=== PATIENT | female | born 1990 | race Caucasian/White ===

== ENCOUNTER 2016-08-02 13:17 | Outpatient (CLI) | payer MEDICAID ==
--- NOTE | 2016-08-03 22:03 | XRAY Report ---
EXAM: RIGHT FOURTH DIGIT RADIOGRAPHY EXAM DATE: 08/02/2016 01:29 PM. CLINICAL HISTORY: PAIN IN RIGHT FINGER. COMPARISON: None. TECHNIQUE: 3 views. FINDINGS: Bones: Comminuted fracture involving the terminal tuft of the fourth distal phalanx without significa nt displacement. No additional fractures. Joints: Normal. No subluxations. Soft Tissues: Unremarkable. IMPRESSION: 1. Comminuted nondisplaced fracture involving the terminal tuft of the right fourth distal phalanx. [facility] Referring Provider Line: [phone] SITE ID: [id number]
== END 2016-08-02 13:18 | disposition home or self-care (01) ==
LOC: DI.S 13:17
PROVIDERS: ATTEND Nurse Practitioner Family
DX: S62.634A Displaced fracture of distal phalanx of right ring finger, initial encounter for closed fracture (principal)
CPT/HCPCS: 73140

== ENCOUNTER 2017-03-14 13:12 | Outpatient (CLI) | payer MEDICAID ==
--- NOTE | 2017-03-15 11:25 | XRAY Report ---
DATE OF SERVICE: 03/14/2017 RIGHT KNEE: 03/14/2017 COMPARISON: None. INDICATION: Right knee pain. TECHNIQUE: Four views of the knee. FINDINGS: Normal alignment. No evidence of acute fracture. No degenerative changes. No effusion. Soft tissues grossly unremarkable. IMPRESSION: NEGATIVE KNEE. TD: 03/15/2017 11:11 [facility]
== END 2017-03-14 13:13 | disposition home or self-care (01) ==
LOC: DI 13:12
PROVIDERS: ATTEND Nurse Practitioner Family
DX: M25.561 Pain in right knee (principal)

== ENCOUNTER 2017-04-01 14:52 | Outpatient (CLI) | payer MEDICAID ==
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
== END 2017-04-01 14:53 | disposition home or self-care (01) ==
LOC: DI 14:52
PROVIDERS: ATTEND Orthopaedic Surgery
DX: S83.91XA Sprain of unspecified site of right knee, initial encounter (principal); M25.461 Effusion, right knee

== ENCOUNTER 2018-05-14 11:55 | Outpatient (CLI) | payer MEDICAID ==
[2018-05-14 12:14] LABS: BASOPHILS % (AUTO) 0.6 %; EOSINOPHILS # (AUTO) 0.7 10^3/uL (0.0-0.7); EOSINOPHILS % (AUTO) 8.5 %; HGB - HEMOGLOBIN 13.2 g/dL (12.0-16.0); LYMPHOCYTES # (AUTO) 1.6 10^3/uL (1.5-3.5); LYMPHOCYTES % (AUTO) 21.4 %; MEAN CORPUSCULAR HEMOGLOBIN 33.7 pg (27.0-31.0); MEAN PLATELET VOLUME 6.9 fL (7.9-10.8); MONOCYTES # (AUTO) 0.5 10^3/uL (0.0-1.0); MONOCYTES % (AUTO) 7.2 %; NEUTROPHILS # (AUTO) 4.8 10^3/uL (1.5-6.6); NEUTROPHILS % (AUTO) 62.3 %; PLT - PLATELET COUNT 226 10^3/uL (130-450); RED BLOOD COUNT 3.92 10^6/uL (4.20-5.40); RED CELL DISTRIBUTION WIDTH 14.2 % (12.0-15.0); WHITE BLOOD COUNT 7.7 x10^3/uL (4.8-10.8)
[2018-05-14 12:31] LABS: ALBUMIN 4.1 g/dL (3.2-5.5); ALBUMIN/GLOBULIN RATIO 1.6 (1.0-2.2); BILIRUBIN,TOTAL 0.9 mg/dL (0.2-1.0); CALCIUM 9.7 mg/dL (8.5-10.3); CREATININE 0.8 mg/dL (0.4-1.0); TOTAL PROTEIN 6.7 g/dL (6.7-8.2)
== END 2018-05-14 11:56 | disposition home or self-care (01) ==
LOC: LAB 11:55
PROVIDERS: ATTEND Nurse Practitioner
DX: R10.31 Right lower quadrant pain (principal)
CPT/HCPCS: 36415; 80053; 85025

== ENCOUNTER 2018-05-14 12:21 | Emergency (ER) | payer MEDICAID ==
[2018-05-14] MEDS ORDERED: MORPHINE 2 MG/ML CARPUJECT IVP STA ×2 (14:13→16:34)
--- NOTE | 2018-05-14 14:16 | ED Physician Documentation ---
PD HPI ABD PAIN - Stated complaint Stated Complaint: RIGHT ABDOMINAL PAIN - Chief complaint Chief Complaint: Abd Pain - History obtained from History obtained from: Patient - History of Present Illness Timing - onset: Other (27-year-old woman with 2 days of initially intermittent and now increasing and more constant right mid abdominal pain that is nonradiating. It is worse with motion. There is no associated nausea, decreased appetite or bowel issue. She doubts . She was seen in the office and had blood work done which was negative and referred here for an ultrasound.) Review of Systems Ten Systems: 10 systems reviewed and negative Constitutional: denies: Fever, Chills Cardiac: denies: Chest pain / pressure, Palpitations Respiratory: denies: Dyspnea, Cough GI: reports: Abdominal Pain. denies: Nausea, Vomiting, Constipation, Diarrhea, Hematemesis, Bloody / black stool PD PAST MEDICAL HISTORY - Past Medical History Cardiovascular: None Respiratory: None Endocrine/Autoimmune: None GI: None : None HEENT: None Psych: Depression, Anxiety, Other Musculoskeletal: None Derm: None - Past Surgical History Past Surgical History: No HEENT: Cataracts - Present Medications Home Medications: Ambulatory Orders Medication Instructions Recorded Confirmed Hydrocodone/Acetaminophen 1 - 2 each PO Q6H PRN #10 tablet 05/14/18 [Hydrocodon-Acetaminophen 5-325] PARoxetine HCl [Paroxetine HCl] 20 mg PO DAILY 05/14/18 05/14/18 Propranolol [Inderal] 10 mg PO DAILY 05/14/18 05/14/18 - Allergies Allergies/Adverse Reactions: Allergies Allergy/AdvReac Type Severity Reaction Status Date / Time No Known Drug Allergies Allergy Verified 05/14/18 12:30 - Social History Does the pt smoke?: No Smoking Status: Never smoker Does the pt drink ETOH?: Yes Does the pt have substance abuse?: Yes - Immunizations Immunizations are current?: Yes - POLST Patient has POLST: No PD ED PE NORMAL - Vitals Vital signs reviewed: Yes - General General: Alert and oriented X 3, No acute distress - HEENT HEENT: PERRL, EOMI - Neck Neck: Supple, no meningeal sign, No bony TTP - Cardiac Cardiac: RRR, No murmur - Respiratory Respiratory: No respiratory distress, Clear bilaterally - Abdomen Abdomen: Normal bowel sounds, Soft, No organomegaly, Other (Tender right mid abdomen, below Fountain's point and above McBurney's point.) - Back Back: No CVA TTP, No spinal TTP - Derm Derm: Normal color, Warm and dry - Extremities Extremities: No edema, No calf tenderness / cord - Neuro Neuro: Alert and oriented X 3, Normal speech - Psych Psych: Normal mood, Normal affect Results - Vitals Vitals: Vital Signs - 24 hr 05/14/18 05/14/18 05/14/18 12:27 14:34 16:28 Temperature 36.5 C 37.3 C Heart Rate 74 64 65 Respiratory 14 18 14 Rate Blood Pressure 121/74 130/75 119/88 H O2 Saturation 96 99 99 Oxygen O2 Source Room air - Labs Labs: Laboratory Tests 05/14/18 14:31 Urine Color YELLOW Urine Clarity HAZY Urine pH 6.0 Ur Specific [place] >=1.030 H Urine Protein NEGATIVE Urine Glucose (UA) NEGATIVE Urine Ketones NEGATIVE Urine Occult Blood SMALL H Urine Nitrite NEGATIVE Urine Bilirubin NEGATIVE Urine Urobilinogen 0.2 (NORMAL) Ur Leukocyte Esterase SMALL H Urine RBC 0-5 Urine WBC 4-5 Ur Squamous Epith Cells MANY Squamous H Urine Bacteria Few Ur Microscopic Review INDICATED Urine Culture Comments NOT INDICATED Urine HCG, Qual NEGATIVE - Rads (name of study) RLQ Sono Radiology: EMP read contemporaneously ct a/p Radiology: EMP read contemporaneously (NORMAL) PD MEDICAL DECISION MAKING - ED course ED course: 27-year-old woman with right mid abdominal pain, would be atypical but not impossible for appendicitis or biliary issue. Started with ultrasound. This was negative and followed with CAT scan also negative. Noting that outpatient labs were done earlier in the day and unremarkable. Close watchful waiting was advised. Departure - Departure Disposition: 01 Home, Self Care Clinical Impression: Abdominal pain Qualifiers: Abdominal location: right lower quadrant Qualified Code(s): R10.31 - Right lower quadrant pain Condition: Good Record reviewed to determine appropriate education?: Yes Instructions: ED Abdominal Pain Appendx Poss Prescriptions: Hydrocodone/Acetaminophen [Hydrocodon-Acetaminophen 5-325] 1 - 2 each PO Q6H PRN #10 tablet PRN Reason: pain Comments: RETURN IN 24 HOURS IF NOT BETTER, ANYTIME IF WORSE OR FOR NEW SYMPTOMS.
[2018-05-14 14:44] LABS: BILIRUBIN,URINE NEGATIVE (NEGATIVE); GLUCOSE, URINE (UA) NEGATIVE (NEGATIVE); KETONES,URINE (UA) NEGATIVE (NEGATIVE); LEUKOCYTE ESTERASE, URINE SMALL (NEGATIVE); NITRITE,URINE NEGATIVE (NEGATIVE); OCCULT BLOOD,URINE SMALL (NEGATIVE); PROTEIN,URINE NEGATIVE (NEGATIVE); UROBILINOGEN,URINE 0.2 (NORMAL) E.U./dL (NORMAL)
[2018-05-14 14:47] LABS: CLARITY,URINE HAZY (CLEAR); HCG UR QUAL NEGATIVE
[2018-05-14 14:53] LABS: BACTERIA,URINE Few /HPF (None Seen); RBC,URINE 0-5 /HPF (0-5); SQUAMOUS EPITHELIAL CELL,UR MANY Squamous (<= Few)
--- NOTE | 2018-05-14 16:27 | Ultrasound Report ---
Reason: RLQ pain eval appy Procedure Date: 05/14/2018 Accession Number: [id number] / [id number] Procedure: US - Abdomen Limited CPT Code: FULL RESULT: EXAM: ABDOMEN ULTRASOUND LIMITED. EXAM DATE: 05/14/2018 03:35 PM. CLINICAL HISTORY: Right lower quadrant pain evaluate for appendicitis. COMPARISON: None. TECHNIQUE: Real-time scanning was performed with static images obtained. FINDINGS: Focused right lower quadrant ultrasound was performed. The ileocecal valve is identified in the right lower quadrant. Normal peristalsis is seen in the right lower quadrant. There is no significant free fluid in the lymphadenopathy is seen. A blind-ending tubular structure with a caliber of 3 mm is identified arising from the cecum, compatible with normal-appearing appendix. This structure is identifiable only under compression as without compression of the structure was masked by bowel gas. IMPRESSION: No appendicitis. [facility]
[2018-05-14] MEDS ORDERED: IOVERSOL 320 100 ML VIAL IVP ONE ×2 (16:45→17:22)
--- NOTE | 2018-05-14 17:59 | CT Report ---
Reason: IV only, R abd pain Procedure Date: 05/14/2018 Accession Number: [id number] / [id number] Procedure: CT - Abdomen/Pelvis W CPT Code: FULL RESULT: EXAM: CT ABDOMEN AND PELVIS EXAM DATE: 05/14/2018 05:19 PM. CLINICAL HISTORY: IV only, R abd pain. COMPARISONS: CT ABD AND PELVIS WITH CONTRAST 03/31/2012 9:37 PM. TECHNIQUE: Routine helical CT imaging was performed through the abdomen and pelvis. IV contrast: 100 cc Optiray 320. Enteric contrast: No. Reconstructions: Coronal and sagittal. In accordance with CT protocol optimization, one or more of the following dose reduction techniques were utilized for this exam: automated exposure control, adjustment of mA and/or KV based on patient size, or use of iterative reconstructive technique. FINDINGS: ABDOMEN: Lung Bases: Incompletely included lower lungs are grossly clear. Heart size is within normal limits. No basilar effusions. Liver: 6 mm hyperdense focus in the right hepatic lobe (3/35) likely reflects a small hemangioma. Spleen: Unremarkable. Pancreas: Unremarkable. Gallbladder/Bile Ducts: Gallbladder is unremarkable. Biliary tree is normal caliber. Adrenal Glands: Unremarkable. Kidneys: No mass, calculi, or hydronephrosis. Peritoneum/Mesentery/Bowel: No free fluid, free air, or collection. No intestinal obstruction or inflammation. The appendix is within normal limits. Lymph nodes: No mesenteric, periportal, or retroperitoneal lymphadenopathy. Vasculature: Abdominal aorta is nonaneurysmal. Portal vein is patent. Hepatic veins are patent. PELVIS: The bladder is unremarkable for the degree of distention. Uterus and ovaries are present No pelvic lymphadenopathy. Bones: No suspicious osseous lesions. IMPRESSION: No acute abnormalities. Normal appendix. [facility]
[2018-05-14 18:21] VITALS: BP 135/65
== END 2018-05-14 18:21 | disposition home or self-care (01) ==
LOC: ED 12:21
DX: R10.31 Right lower quadrant pain (principal)
CPT/HCPCS: 36415; 74177; 76705; 80053; 81001; 81025; 85025; 96374; 96376; 99283; Q9967; 81003; 87086

== ENCOUNTER 2018-12-02 16:20 | Emergency (ER) | payer MEDICAID ==
[2018-12-02 16:26] VITALS: BP 137/91
--- NOTE | 2018-12-02 16:45 | ED Physician Documentation ---
PD HPI ABD PAIN - Stated complaint Stated Complaint: FEMALE - Chief complaint Chief Complaint: Abd Pain - History obtained from History obtained from: Patient - History of Present Illness Timing - onset: Other (28-year-old woman had a menses that started at his normal time about a week and a half ago has been progressively heavier and now is having clots. She is sexually active but uses condoms. She is on no form of control or hormones.) Review of Systems Constitutional: reports: Reviewed and negative Cardiac: reports: Reviewed and negative Respiratory: reports: Reviewed and negative PD PAST MEDICAL HISTORY - Past Medical History Cardiovascular: None Respiratory: None Endocrine/Autoimmune: None GI: None : None HEENT: None Psych: Depression, Anxiety, Other Musculoskeletal: None Derm: None - Past Surgical History Past Surgical History: No HEENT: Cataracts - Present Medications Home Medications: Ambulatory Orders Medication Instructions Recorded Confirmed PARoxetine HCl [Paroxetine HCl] 20 mg PO DAILY 05/14/18 05/14/18 Propranolol [Inderal] 10 mg PO DAILY 05/14/18 05/14/18 Nitrofurantoin Monohyd/M-Cryst 100 mg PO BID #10 capsule 12/02/18 [Macrobid 100 mg Capsule] Norgestimate-Ethinyl Estradiol 1 each PO TID #1 packet 12/02/18 [Ortho Tri-Cyclen 28 Tablet] - Allergies Allergies/Adverse Reactions: Allergies Allergy/AdvReac Type Severity Reaction Status Date / Time No Known Drug Allergies Allergy Verified 12/02/18 16:25 - Social History Does the pt smoke?: No Smoking Status: Never smoker Does the pt drink ETOH?: Yes Does the pt have substance abuse?: Yes - Immunizations Immunizations are current?: Yes - POLST Patient has POLST: No PD ED PE NORMAL - Vitals Vital signs reviewed: Yes - General General: Alert and oriented X 3, No acute distress - Neck Neck: Supple, no meningeal sign, No bony TTP - Cardiac Cardiac: RRR, No murmur - Respiratory Respiratory: No respiratory distress, Clear bilaterally - Abdomen Abdomen: Soft, Non tender - Back Back: No CVA TTP, No spinal TTP - Derm Derm: Normal color, Warm and dry - Extremities Extremities: No edema, No calf tenderness / cord - Neuro Neuro: Alert and oriented X 3, Normal speech Results - Vitals Vitals: Vital Signs - 24 hr 12/02/18 16:22 Temperature 36.1 C L Heart Rate 92 Respiratory 18 Rate Blood Pressure 137/91 H O2 Saturation 99 Oxygen O2 Source Room air - Labs Labs: Laboratory Tests 12/02/18 12/02/18 12/02/18 16:35 16:35 16:55 WBC 7.4 RBC 3.66 L Hgb 12.3 Hct 36.4 L MCV 99.5 H MCH 33.6 H MCHC 33.8 RDW 12.1 Plt Count 182 MPV 9.2 Neut # (Auto) 5.2 Lymph # (Auto) 1.1 L Payne # (Auto) 0.6 Eos # (Auto) 0.4 Baso # (Auto) 0.0 Absolute Nucleated RBC 0.00 Nucleated RBC % 0.0 Sodium Potassium Chloride Carbon Dioxide Anion Gap BUN Creatinine Estimated GFR (MDRD) Glucose Calcium Total Bilirubin AST ALT Alkaline Phosphatase Total Protein Albumin Globulin Albumin/Globulin Ratio Lipase Urine Color RED/BLOODY Urine Clarity BLOODY Urine pH 7.0 Ur Specific [place] 1.025 1.025 Urine Protein >=300 H Urine Glucose (UA) NEGATIVE Urine Ketones 15 H Urine Occult Blood LARGE H Urine Nitrite POSITIVE H Urine Bilirubin NEGATIVE Urine Urobilinogen 1 (NORMAL) Ur Leukocyte Esterase TRACE H Urine RBC TNTC H Urine WBC >25 H Ur Squamous Epith Cells FEW Squamous Urine Bacteria Few Ur Microscopic Review INDICATED Urine Culture Comments INDICATED Urine HCG, Qual NEGATIVE 12/02/18 16:55 WBC RBC Hgb Hct MCV MCH MCHC RDW Plt Count MPV Neut # (Auto) Lymph # (Auto) Payne # (Auto) Eos # (Auto) Baso # (Auto) Absolute Nucleated RBC Nucleated RBC % Sodium 138 Potassium 4.6 Chloride 102 Carbon Dioxide 26 Anion Gap 10.0 BUN 12 Creatinine 0.8 Estimated GFR (MDRD) 86 L Glucose 91 Calcium 10.0 Total Bilirubin 2.2 H AST 68 H ALT 49 Alkaline Phosphatase 59 Total Protein 7.4 Albumin 4.4 Globulin 3.0 Albumin/Globulin Ratio 1.5 Lipase 39 Urine Color Urine Clarity Urine pH Ur Specific [place] Urine Protein Urine Glucose (UA) Urine Ketones Urine Occult Blood Urine Nitrite Urine Bilirubin Urine Urobilinogen Ur Leukocyte Esterase Urine RBC Urine WBC Ur Squamous Epith Cells Urine Bacteria Ur Microscopic Review Urine Culture Comments Urine HCG, Qual PD MEDICAL DECISION MAKING - ED course ED course: 28-year-old woman presents with dysfunctional uterine bleeding. Her H&H is reassuring and she is not . She does have at evidence of UTI on urinalysis, but really no associated symptoms. Will treat pending culture. She is started on hyper dose control to stanch the bleeding. Gynecology follow-up was advised. Note made of her liver enzymes, she does intermittently binge drink, these were shared with her and she was advised to cease alcohol use. Departure - Departure Disposition: 01 Home, Self Care Clinical Impression: Menometrorrhagia Condition: Good Record reviewed to determine appropriate education?: Yes Instructions: ED Bleed Irregular Vaginal Follow-Up: [facility] [Provider Group] - Within 1 week Prescriptions: Nitrofurantoin Monohyd/M-Cryst [Macrobid 100 mg Capsule] 100 mg PO BID #10 capsule Norgestimate-Ethinyl Estradiol [Ortho Tri-Cyclen 28 Tablet] 1 each PO TID #1 packet Comments: Your blood counts are okay, start the control tonight and take 3 times a day until the bleeding stops. Then take 1 tablet a day for the rest of the pack. Return for new worsening symptoms. Follow up with the integration assistant, next available appointment. Call tomorrow. We will culture your urine, the results should be done in 48-72 hours. If an antibiotic change is necessary we will call you. Return if worse in the meantime, especially if you develop increasing flank pain, fevers, or cannot keep down the medication.
[2018-12-02 16:57] LABS: GLUCOSE, URINE (UA) NEGATIVE (NEGATIVE); KETONES,URINE (UA) 15 mg/dL (NEGATIVE); LEUKOCYTE ESTERASE, URINE TRACE (NEGATIVE); NITRITE,URINE POSITIVE (NEGATIVE); OCCULT BLOOD,URINE LARGE (NEGATIVE); PROTEIN,URINE >=300 mg/dL (NEGATIVE); UROBILINOGEN,URINE 1 (NORMAL) E.U./dL (NORMAL)
[2018-12-02 17:01] LABS: BILIRUBIN,URINE NEGATIVE (NEGATIVE); CLARITY,URINE BLOODY (CLEAR); HCG UR QUAL NEGATIVE; ICTOTEST,URINE NEGATIVE
[2018-12-02 17:02] LABS: BASOPHILS % (AUTO) 0.3 %; EOSINOPHILS # (AUTO) 0.4 10^3/uL (0.0-0.7); EOSINOPHILS % (AUTO) 5.4 %; HGB - HEMOGLOBIN 12.3 g/dL (12.0-16.0); LYMPHOCYTES # (AUTO) 1.1 10^3/uL (1.5-3.5); LYMPHOCYTES % (AUTO) 15.3 %; MEAN CORPUSCULAR HEMOGLOBIN 33.6 pg (27.0-31.0); MEAN CORPUSCULAR HGB CONC 33.8 g/dL (32.0-36.0); MEAN CORPUSCULAR VOLUME 99.5 fL (81.0-99.0); MEAN PLATELET VOLUME 9.2 fL (7.9-10.8); MONOCYTES # (AUTO) 0.6 10^3/uL (0.0-1.0); MONOCYTES % (AUTO) 8.2 %; NEUTROPHILS # (AUTO) 5.2 10^3/uL (1.5-6.6); NEUTROPHILS % (AUTO) 70.5 %; PLT - PLATELET COUNT 182 10^3/uL (130-450); RED BLOOD COUNT 3.66 10^6/uL (4.20-5.40); RED CELL DISTRIBUTION WIDTH 12.1 % (12.0-15.0); WHITE BLOOD COUNT 7.4 x10^3/uL (4.8-10.8)
[2018-12-02 17:03] LABS: BACTERIA,URINE Few /HPF (None Seen); RBC,URINE TNTC /HPF (0-5); SQUAMOUS EPITHELIAL CELL,UR FEW Squamous (<= Few)
[2018-12-02 17:15] LABS: ALBUMIN 4.4 g/dL (3.2-5.5); ALBUMIN/GLOBULIN RATIO 1.5 (1.0-2.2); BILIRUBIN,TOTAL 2.2 mg/dL (0.2-1.0); CREATININE 0.8 mg/dL (0.4-1.0); TOTAL PROTEIN 7.4 g/dL (6.7-8.2)
== END 2018-12-02 17:28 | disposition home or self-care (01) ==
LOC: ED 16:20
DX: N92.1 Excessive and frequent menstruation with irregular cycle (principal); N39.0 Urinary tract infection, site not specified; R74.8 Abnormal levels of other serum enzymes
CPT/HCPCS: 36415; 80053; 81001; 81003; 81025; 83690; 85025; 86850; 86900; 86901; 87086; 99283

== ENCOUNTER 2018-12-12 08:00 | Outpatient (CLI) | payer MEDICAID ==
[2018-12-12 21:59] LABS: TRICHOMONAS VAGINALIS DNA NEGATIVE (NEGATIVE)
== END 2018-12-12 23:59 | disposition home or self-care (01) ==
LOC: LAB.R 08:00
PROVIDERS: ATTEND Obstetrics & Gynecology
DX: N76.0 Acute vaginitis (principal)
CPT/HCPCS: 87491; 87591; 87661

== ENCOUNTER 2019-01-17 11:02 | Outpatient (CLI) | payer MEDICAID ==
--- NOTE | 2019-01-18 23:26 | Ultrasound Report ---
Reason: DUB Procedure Date: 01/17/2019 Accession Number: [id number] / [id number] Procedure: US - Pelvic w/Transvaginal CPT Code: Final Report FULL RESULT: EXAM: PELVIC ULTRASOUND EXAM DATE: 01/17/2019 11:49 AM. CLINICAL HISTORY: Dysfunctional uterine bleeding. COMPARISON: ABDOMEN LIMITED 05/14/2018 3:35 PM. TECHNIQUE: Realtime transabdominal pelvic scan performed to identify the uterus and adnexa and as an overview of other pelvic structures, followed by transvaginal scan to provide greater detail of the uterus and adnexa, with static image documentation. FINDINGS: Uterus: 8.7 x 3.9 x 5.1 cm, volume 91.3 cc. Anteverted position. Normal overall size and echotexture. Masses: Intramural calcification measuring up to 4 mm in diameter located in the posterior myometrial wall. Endometrium: 3 mm. Normal. Cervix: Nabothian cysts. Otherwise, Right Ovary: 4 x 2.4 x 2.2 cm, volume 10.6 cc. Normal echotexture and blood flow. Left Ovary: 2.6 x 2.1 x 2.4 cm, volume 7 cc. Normal echotexture and blood flow. Free Fluid: None. Other: None. IMPRESSION: 1. No acute finding sonographically. 2. No significant myometrial or ovarian/adnexal masses. 3. Small focus of calcifications in the posterior myometrial wall measuring up to 4 mm in diameter, likely clinically insignificant.. [facility]
== END 2019-01-17 11:03 | disposition home or self-care (01) ==
LOC: DI 11:02
PROVIDERS: ATTEND Obstetrics & Gynecology
DX: N93.8 Other specified abnormal uterine and vaginal bleeding (principal); N85.8 Other specified noninflammatory disorders of uterus
CPT/HCPCS: 76830; 76856

== ENCOUNTER 2020-01-16 08:00 | Outpatient (CLI) | payer MEDICAID ==
[2020-02-15 20:14] LABS: BASOPHILS % (AUTO) 0.3 %; EOSINOPHILS # (AUTO) 0.3 10^3/uL (0.0-0.7); HGB - HEMOGLOBIN 13.8 g/dL (12.0-16.0); LYMPHOCYTES # (AUTO) 1.8 10^3/uL (1.5-3.5); LYMPHOCYTES % (AUTO) 26.6 %; MEAN CORPUSCULAR HEMOGLOBIN 33.3 pg (27.0-31.0); MEAN CORPUSCULAR HGB CONC 33.5 g/dL (32.0-36.0); MEAN CORPUSCULAR VOLUME 99.5 fL (81.0-99.0); MEAN PLATELET VOLUME 9.7 fL (7.9-10.8); MONOCYTES # (AUTO) 0.6 10^3/uL (0.0-1.0); MONOCYTES % (AUTO) 8.4 %; NEUTROPHILS % (AUTO) 59.4 %; PLT - PLATELET COUNT 234 10^3/uL (130-450); RED BLOOD COUNT 4.14 10^6/uL (4.20-5.40); RED CELL DISTRIBUTION WIDTH 12.4 % (12.0-15.0); WHITE BLOOD COUNT 6.8 x10^3/uL (4.8-10.8)
[2020-02-15 20:18] LABS: ALBUMIN 4.6 g/dL (3.2-5.5); ALBUMIN/GLOBULIN RATIO 1.5 (1.0-2.2); BILIRUBIN,TOTAL 1.5 mg/dL (0.2-1.0); CALCIUM 9.9 mg/dL (8.5-10.3); CREATININE 0.6 mg/dL (0.4-1.0); TOTAL PROTEIN 7.7 g/dL (6.7-8.2)
== END 2020-02-15 23:59 | disposition home or self-care (01) ==
LOC: LAB.S 08:00
PROVIDERS: ATTEND Physician Assistant Medical
DX: E04.9 Nontoxic goiter, unspecified (principal); R59.9 Enlarged lymph nodes, unspecified
CPT/HCPCS: 36415; 80053; 84443; 85025

== ENCOUNTER 2020-02-23 12:01 | Outpatient (CLI) | payer MEDICAID ==
--- NOTE | 2020-02-23 13:13 | Ultrasound Report ---
PROCEDURE: Head or Neck Soft Tissue INDICATIONS: ENLARGED LYMPH NODES, ENLARGED THYROID TECHNIQUE: Real time scanning was performed of the neck region of interest, with image documentation . COMPARISON: None. FINDINGS: The right thyroid lobe measures 2.0 x 2.1 x 5.6 cm. The left thyroid lobe measures 1.4 x 1. 8 x 4.6 in meters. The isthmus measures 2 mm in thickness. There is no thyroid nodule. There are mult iple normal-appearing lymph nodes in the neck in the level 2 and 3 stations. The lymph nodes of evert rn as indicated by the patient in the right occipital and left posterior retroareolar region are also normal in appearance with no cortical thickening and a short axis diameter of 4-5 mm. There is no sp ecial enlarged or pathologic-appearing lymph node in the neck. IMPRESSION: Normal sonographic appearance of the thyroid with no nodule. No sonographic evidence of lymphadenopathy in the neck. Normal-appearing lymph nodes of the patient's palpable areas of concern. Reviewed by: Gerardo Colby MD on 02/23/2020 12:12 PM [facility] Approved by: Gerardo Colby MD on 02/23/2020 12:12 PM [facility] Station ID: [id number]
== END 2020-02-23 12:02 | disposition home or self-care (01) ==
LOC: DI 12:01
PROVIDERS: ATTEND Registered Nurse
DX: E04.9 Nontoxic goiter, unspecified (principal); R59.0 Localized enlarged lymph nodes

== ENCOUNTER 2021-07-05 08:00 | Outpatient (CLI) | payer MEDICAID ==
--- NOTE | 2021-07-05 13:47 | XRAY Report ---
PROCEDURE: Cervical Spine 2 View INDICATIONS: CERVICAL RADICULOPATHY TECHNIQUE: 3 view(s) of the cervical spine were acquired. COMPARISON: None. FINDINGS: Bones: No fractures or dislocations to the C7 level. The lateral masses of C1 appear intact on the odontoid view. No suspicious bony lesions. Disc space narrowing and endplate osteophyte formation a t C5-C6 and C6-C7, indicating degenerative disc disease. Mild facet hypertrophy within the mid and lo wer cervical spine. Soft tissues: No prevertebral soft tissue swelling. IMPRESSION: Mild multilevel degenerative disc and facet disease. No acute fracture. No osseous lesio n. If symptoms and/or clinical suspicion for pathology continue, further assessment with repeat plain films, or advanced imaging (e.g., CT, MRI, or bone scan) is recommended for further assessment. Reviewed by: Domenic Lane MD on 07/05/2021 1:46 PM PDT Approved by: Domenic Lane MD on 07/05/2021 1:46 PM PDT Station ID: [id number]
== END 2021-07-05 23:59 | disposition home or self-care (01) ==
LOC: DI.S 08:00
PROVIDERS: ATTEND Emergency Medicine
DX: M47.22 Other spondylosis with radiculopathy, cervical region (principal); M50.122 Cervical disc disorder at C5-C6 level with radiculopathy

== ENCOUNTER 2022-01-12 11:35 | Outpatient (CLI) | payer MEDICAID | END 2022-01-12 11:36 | disposition home or self-care (01) | LOC: LAB 11:35 | PROVIDERS: ATTEND Nurse Practitioner | DX: Z32.01 Encounter for pregnancy test, result positive (principal) | CPT/HCPCS: 36415; 84702 ==

== ENCOUNTER 2022-01-14 12:34 | Outpatient (CLI) | payer MEDICAID | END 2022-01-14 12:35 | disposition home or self-care (01) | LOC: LAB 12:34 | PROVIDERS: ATTEND Nurse Practitioner | DX: Z32.02 Encounter for pregnancy test, result negative (principal) | CPT/HCPCS: 36415; 84702 ==

== ENCOUNTER 2022-01-17 08:00 | Outpatient (CLI) | payer MEDICAID ==
[2022-01-17 22:48] LABS: BACTERIAL VAGINOSIS DNA NEGATIVE (NEGATIVE); CANDIDA GLABRATA DNA NEGATIVE (NEGATIVE); CANDIDA GROUP DNA NEGATIVE (NEGATIVE); CANDIDA KRUSEI DNA NEGATIVE (NEGATIVE); TRICHOMONAS VAGINALIS DNA NEGATIVE (NEGATIVE)
== END 2022-01-17 23:59 | disposition home or self-care (01) ==
LOC: LAB.WC 08:00
PROVIDERS: ATTEND Nurse Practitioner
DX: N89.8 Other specified noninflammatory disorders of vagina (principal)
CPT/HCPCS: 81514

== ENCOUNTER 2022-04-28 08:39 | Outpatient (CLI) | payer MEDICAID ==
--- NOTE | 2022-04-30 12:57 | MRI Report ---
PROCEDURE: BRACHIAL PLEXUS WO INDICATIONS: THORACIC OUTLET SYNDROME TECHNIQUE: Noncontrast axial, coronal, and sagittal T1 spin echo and STIR through the affected brachial plexus r egion. Additional axial T1 spin echo and coronal T2 fast spin echo acquired through both brachial pl exuses with a large [id number]. COMPARISON: None. FINDINGS: Image quality: Excellent. Brachial plexus: The brachial plexus appears unremarkable, with no convincing T2 signal abnormali ty or regional abnormal enhancement. No invading mass or focal abnormality of the lung apex or region al soft tissues. Soft tissues: No supraclavicular adenopathy by size criteria. Superior pleural surfaces are normal in thickness. Jugular veins and carotid arteries appear normal in size. The thoracic outlet and sca maria c triangle is normal, as is the costoclavicular space and pectoralis minor. No fibrous band or mas s lesion is identified. Bones: Marrow demonstrates normal overall signal. IMPRESSION: Normal MRI of the left brachial plexus without contrast Reviewed by: Jeremy Rodriguez MD on 04/30/2022 11:56 AM [place] Approved by: Jeremy Rodriguez MD on 04/30/2022 11:56 AM [place] Station ID: [id number]
== END 2022-04-28 08:40 | disposition home or self-care (01) ==
LOC: DI 08:39
PROVIDERS: ATTEND Neurological Surgery
DX: M47.22 Other spondylosis with radiculopathy, cervical region (principal)

== ENCOUNTER 2022-11-14 08:00 | Outpatient (CLI) | payer MEDICAID | END 2022-11-14 23:59 | disposition home or self-care (01) | LOC: LAB.S 08:00 | PROVIDERS: ATTEND Nurse Practitioner | DX: T14.90XA Injury, unspecified, initial encounter (principal) | CPT/HCPCS: 87070; 87181; 87205; 87252 ==

== ENCOUNTER 2022-12-12 09:52 | Outpatient (CLI) | payer MEDICAID ==
--- NOTE | 2022-12-12 11:27 | CT Report ---
PROCEDURE: ABDOMEN/PELVIS WO INDICATIONS: HEMATURIA TECHNIQUE: A CT scan of the abdomen and pelvis was performed without the use of intravenous contrast. Images we re recorded and evaluated at appropriate window settings. Reformats: coronal and sagittal. For radiat ion dose reduction, the following was used: automated exposure control, adjustment of mA and/or kV ac cording to patient size. COMPARISON: MRI abdomen 10/22/2022. FINDINGS: Image quality: Excellent. Lung bases and heart: Unremarkable. Liver: Unremarkable. Gallbladder and biliary tree: Unremarkable. Spleen: No splenomegaly. Pancreas: No peripancreatic fluid collection. Adrenals: No adrenal nodule. Kidneys and ureters: No hydronephrosis. No kidney stones. Bowel and peritoneum: No bowel distension. No pathologic free fluid. Normal appendix. Lymph nodes: No central or retroperitoneal adenopathy. Vessels: No infrarenal aortic aneurysm. PELVIS Reproductive organs: Anteverted uterus. Bladder: No stone. Bladder wall is unremarkable. Pelvic lymph nodes: No pelvic adenopathy by size criteria. Bones: No aggressive osseous abnormality. Other: No significant ventral or inguinal hernia. IMPRESSION: No hydronephrosis. No kidney stones. Reviewed by: Kel Lozano MD on 12/12/2022 11:26 AM PDT Approved by: Kel Lozano MD on 12/12/2022 11:26 AM PDT Station ID: [id number]
== END 2022-12-12 09:53 | disposition home or self-care (01) ==
LOC: DI 09:52
PROVIDERS: ATTEND Nurse Practitioner Acute Care
DX: R31.29 Other microscopic hematuria (principal); M54.50 Low back pain, unspecified

== ENCOUNTER 2022-12-14 08:00 | Outpatient (CLI) | payer MEDICAID ==
[2022-12-14 14:31] LABS: BILIRUBIN,URINE NEGATIVE (NEGATIVE); GLUCOSE, URINE (UA) NEGATIVE (NEGATIVE); KETONES,URINE (UA) NEGATIVE (NEGATIVE); LEUKOCYTE ESTERASE, URINE SMALL (NEGATIVE); NITRITE,URINE NEGATIVE (NEGATIVE); OCCULT BLOOD,URINE NEGATIVE (NEGATIVE); PH,URINE 5.5 PH (5.0-7.5); PROTEIN,URINE NEGATIVE (NEGATIVE); UROBILINOGEN,URINE 0.2 (NORMAL) E.U./dL (NORMAL)
[2022-12-14 14:45] LABS: BACTERIA,URINE Many /HPF (None Seen); CLARITY,URINE CLOUDY (CLEAR); RBC,URINE None Seen /HPF (0-5); SQUAMOUS EPITHELIAL CELL,UR MOD Squamous (<= Few); WBC CLUMPS,URINE NONE SEEN
== END 2022-12-14 23:59 | disposition home or self-care (01) ==
LOC: LAB.S 08:00
PROVIDERS: ATTEND Nurse Practitioner Acute Care
DX: R10.2 Pelvic and perineal pain (principal); R31.29 Other microscopic hematuria
CPT/HCPCS: 81001; 87086

== ENCOUNTER 2023-08-29 11:33 | Emergency (ER) | payer MEDICAID ==
--- NOTE | 2023-08-29 12:00 | ED Physician Documentation ---
PD HPI ABD PAIN - Stated complaint Stated Complaint: ABD PX,NAUSEA - Chief complaint Chief Complaint: Abd Pain - History obtained from History obtained from: Patient - History of Present Illness Timing - onset: How many days ago (5) Timing - duration: Days (5) Timing - details: Gradual onset, Still present Quality: Cramping, Aching, Pain Location: RLQ, Suprapubic Radiation: Lower back Associated symptoms: Nausea, Vomiting (the first 1-2 days, then not.), Dysuria. No: Fever, Diarrhea, Constipation, Vaginal dc Similar symptoms before: Has not had sx before Recently seen: Clinic (went to [facility] and Dx with UTI but concern for RLQ pain as well, so referred to ER for eval.) Review of Systems Constitutional: denies: Fever, Chills PD PAST MEDICAL HISTORY - Past Medical History Cardiovascular: None Respiratory: None Endocrine/Autoimmune: None GI: None : None HEENT: None Psych: Depression, Anxiety, Other Musculoskeletal: None Derm: None - Past Surgical History Past Surgical History: No HEENT: Cataracts - Present Medications Home Medications: Ambulatory Orders Medication Instructions Recorded Confirmed PARoxetine HCL [Paroxetine HCl] 20 mg PO DAILY 05/14/18 05/14/18 Propranolol [Inderal] 10 mg PO DAILY 05/14/18 05/14/18 Nitrofurantoin Monohyd/M-Cryst 100 mg PO BID #10 capsule 12/02/18 [Macrobid 100 mg Capsule] Norgestimate-Ethinyl Estradiol 1 each PO TID #1 packet 12/02/18 [Ortho Tri-Cyclen 28 Tablet] HYDROcod/ACETAM 5/325 [Varney 5/325] 1 - 2 ea PO Q6H PRN #14 tablet 10/22/22 Ondansetron Odt [Zofran] 4 mg TL Q6H PRN #10 tablet 10/22/22 HYDROcodone/ACET 7.5/325 [Varney 1 each PO Q6H PRN #20 tablet 08/29/23 7.5/325] Meloxicam [Mobic] 7.5 mg PO BID 10 Days #20 tablet 08/29/23 Ondansetron Odt [Zofran] 4 mg TL Q6H PRN #10 tablet 08/29/23 cephALEXin [Keflex] 500 mg PO TID #18 cap 08/29/23 - Allergies Allergies/Adverse Reactions: Allergies Allergy/AdvReac Type Severity Reaction Status Date / Time No Known Drug Allergies Allergy Verified 08/29/23 11:43 - Social History Does the pt smoke?: No Smoking Status: Never smoker Does the pt drink ETOH?: Yes Does the pt have substance abuse?: Yes - Immunizations Immunizations are current?: Yes - POLST Patient has POLST: No PD ED PE NORMAL - Vitals Vital signs reviewed: Yes - General General: Alert and oriented X 3, No acute distress, Well developed/nourished - Cardiac Cardiac: RRR, No murmur - Respiratory Respiratory: Clear bilaterally - Abdomen Abdomen: Normal bowel sounds, Soft, Non distended, Other (tender in lower abd right and left but right more. Mild guarding. No percussion nor rebound. Suprapubic area tender as well. Some right CVA tender but having pain both sides back. ) - Female Female : Deferred - Derm Derm: Normal color, Warm and dry Results - Vitals Vitals: Oxygen O2 Source Room air - Labs Labs: Laboratory Tests 08/29/23 08/29/23 12:03 12:03 WBC 6.7 RBC 4.38 Hgb 14.1 Hct 42.9 MCV 97.9 MCH 32.2 H MCHC 32.9 RDW 12.0 Plt Count 236 MPV 9.0 Neut # (Auto) 4.6 Lymph # (Auto) 1.4 L [place] # (Auto) 0.5 Eos # (Auto) 0.2 Baso # (Auto) 0.0 Absolute Nucleated RBC 0.00 Nucleated RBC % 0.0 Sodium 138 Potassium 4.0 Chloride 106 Carbon Dioxide 27 Anion Gap 5.0 L BUN 9 Creatinine 0.7 Estimated GFR (MDRD) 97 Glucose 91 Calcium 10.0 Total Bilirubin 1.2 H AST 25 ALT 20 Alkaline Phosphatase 67 Total Protein 7.1 Albumin 4.5 Globulin 2.6 Albumin/Globulin Ratio 1.7 Lipase 31 - Rads (name of study) abd/pelvic CT Relevant Findings:: Final report received (general colon wall thickening. No abscess nor perforation. Appendix is normal. Some hyperemai of GB wall. ), EMP independent interpretation of test PD Medical Decision Making - ED course Complexity details: reviewed results, considered differential (had n/v initially and with cramping abd pain lower for 2-3 days. Some dysuria. Did not give UA here but [facility] states pt had positive UA there. I have lower suspicion for focal appendix but does have general abd pain lower, so CT is reasonable and shared discussion with pt. ), d/w patient ED course: Had general colon wall thickening whcih would most likely go along with viral GE. Normal appendix. Does have UTI by [facility] reports, so abx for that. Can cover for bacterial colitis in case. Departure - Departure Disposition: 01 Home, Self Care Clinical Impression: Lower abdominal pain, UTI (urinary tract infection), Acute colitis Condition: Stable Record reviewed to determine appropriate education?: Yes Instructions: ED Gastroenteritis Viral Follow-Up: Selena Sams ARNP [Primary Care Provider] - Prescriptions: cephALEXin [Keflex] 500 mg PO TID #18 cap Meloxicam [Mobic] 7.5 mg PO BID 10 Days #20 tablet HYDROcodone/ACET 7.5/325 [Varney 7.5/325] 1 each PO Q6H PRN #20 tablet PRN Reason: Pain 5-7 Ondansetron Odt [Zofran] 4 mg TL Q6H PRN #10 tablet PRN Reason: Nausea / Vomiting Comments: On your CT scan, the appendix is normal. They do identify some generalized moderate inflammation of the colon/intestine. This could fit for your symptoms of initial nausea and vomiting and abdominal cramping. Even though there is not diarrhea per se to a large degree, the appearance would still go along with the idea of a likely viral stomach flu. I think your duration of symptoms is a little longer than usual "food poisoning". The clinic urine test had showed signs of bladder infection that may account for a bit of your symptoms as well. The intestinal inflammation would be treated with some anti-inflammatories and may be bland diet but mostly time for it to resolve which should still occur over the next several days or so. Add ondansetron/Zofran if needed for nausea. For the bladder infection, I would add cephalexin 3 times daily for the next 6 days. Recheck if symptoms generally not improving well over the next few days. Tylenol 500 to 650 mg 4 times daily if needed for pains. I did prescribe a little stronger pain medicine to take periodically if needed. I would anticipate this needing short-term use just over the next 2 to 3 days. I sent your prescriptions to [facility] in [place]. I am prescribing a short course of narcotic pain medication for you. These are potentially dangerous and addictive medications that should be used carefully. These medications may constipate you. Take an ornh-rse-avnhqse stool softener such as docusate twice daily with plenty of water while taking these medications. If you go 24 hours without a bowel movement, take [id number] MiraLAX, per package instructions. Do not drink or drive while taking these medications. If you received narcotic or sedating medications while in the emergency department do not drive for 24 hours. Store this medication in a safe, secure place and out of reach of children. It is a violation of federal law to give or sell this medication to another person or to use in a manner other than prescribed. The ED will not refill narcotic prescriptions, including prescriptions lost or stolen. You can dispose of unwanted medications at the [facility]'s office or at several pharmacies such as [facility]. Good luck with your trip to [place], And happy birthday. Forms: PCP List Discharge Date/Time: 08/29/23 15:10
[2023-08-29 12:14] LABS: BASOPHILS % (AUTO) 0.3 %; EOSINOPHILS # (AUTO) 0.2 10^3/uL (0.0-0.7); HCT - HEMATOCRIT 42.9 % (37.0-47.0); HGB - HEMOGLOBIN 14.1 g/dL (12.0-16.0); LYMPHOCYTES # (AUTO) 1.4 10^3/uL (1.5-3.5); LYMPHOCYTES % (AUTO) 20.6 %; MEAN CORPUSCULAR HEMOGLOBIN 32.2 pg (27.0-31.0); MEAN CORPUSCULAR HGB CONC 32.9 g/dL (32.0-36.0); MEAN CORPUSCULAR VOLUME 97.9 fL (81.0-99.0); MONOCYTES # (AUTO) 0.5 10^3/uL (0.0-1.0); MONOCYTES % (AUTO) 7.3 %; NEUTROPHILS # (AUTO) 4.6 10^3/uL (1.5-6.6); NEUTROPHILS % (AUTO) 68.7 %; PLT - PLATELET COUNT 236 10^3/uL (130-450); RED BLOOD COUNT 4.38 10^6/uL (4.20-5.40); WHITE BLOOD COUNT 6.7 x10^3/uL (4.8-10.8)
[2023-08-29 12:31] LABS: ALBUMIN 4.5 g/dL (3.2-5.5); ALBUMIN/GLOBULIN RATIO 1.7 (1.0-2.2); BILIRUBIN,TOTAL 1.2 mg/dL (0.2-1.0); CREATININE 0.7 mg/dL (0.6-1.3); TOTAL PROTEIN 7.1 g/dL (6.4-8.9)
[2023-08-29] MEDS ORDERED: iohexoL-300 100 ML VIAL ONE (13:01)
[2023-08-29] MEDS: SODIUM CHLORIDE 0.9% 1,000 ML IV STA (13:22)
[2023-08-29] MEDS: HYDROmorphone 0.5 MG/0.5 ML SYRINGE IVP STA (13:22)
[2023-08-29] MEDS: KETOROLAC 15 MG/ML VIAL IVP STA (13:22)
[2023-08-29] MEDS: ONDANSETRON 4 MG/2 ML VIAL IVP STA (13:22)
--- NOTE | 2023-08-29 13:58 | CT Report ---
PROCEDURE: Abdomen/Pelvis W INDICATIONS: RLQ pain few days CONTRAST: Omni 300 100ml TECHNIQUE: After the administration of intravenous contrast, a CT scan of the abdomen and pelvis was performed. Images were recorded and evaluated at appropriate window settings. Reformats: coronal and sagittal. F or radiation dose reduction, the following was used: automated exposure control, adjustment of mA and /or kV according to patient size. COMPARISON: 12/12/2022 FINDINGS: Image quality: Diagnostic. Lower chest: Unremarkable. Liver: No solid mass. Incidental note is made of focal fatty infiltration adjacent to the falciform l igament, which is not regarded to the frankly pathologic. Gallbladder: Mild gallbladder wall hyperemia can be seen, with potential pericholecystic fluid. Biliary tree: No intrahepatic or extrahepatic dilation, accounting for age. Spleen: No splenomegaly. Pancreas: No pancreatic ductal dilation. Adrenals: No adrenal nodule. Kidneys and ureters: No hydronephrosis. No renal cystic lesion which requires follow up. No solid mas s. Stomach, bowel and peritoneum: In this patient with this given history, scrutiny is given to the appe ndix. A normal appendix is seen. No focal right lower quadrant inflammatory change is seen. Generalized moderate clinical thickening can be seen. No dilated loops of small bowel are seen. The stomach is relatively decompressed at the time of this study, limiting its evaluation. No free air or significant free fluid can be seen. Lymph nodes: No central or retroperitoneal adenopathy. Vessels: No infrarenal aortic aneurysm. Patent portal vein. PELVIS Reproductive organs: The uterus demonstrates an unremarkable appearance for age. No adnexal masses ar e seen. Bladder: No abnormal wall thickening, accounting for underdistention. Pelvic lymph nodes: No pelvic adenopathy by size criteria. Bones: No aggressive osseous abnormality. Other: No significant ventral or inguinal hernia. IMPRESSION: Normal appendix. No focal right lower quadrant inflammatory change can be seen. Generalized colonic wall thickening can be seen. Please correlate with potential infectious and infla mmatory causes of colitis. No findings of perforation or abscess can be seen. Mild gallbladder wall hyperemia can be seen, with potential pericholecystic fluid. If clinically appr opriate, please consider a follow-up right upper quadrant ultrasound for further evaluation. Reviewed by: Sterling Sargent MD on 08/29/2023 12:56 PM AKDT Approved by: Sterling Sargent MD on 08/29/2023 12:56 PM OKALEX Station ID: [id number]
[2023-08-29] MEDS: cefTRIAXone 1 GM VIAL IVP STA (14:47)
[2023-08-29] MEDS: HYDROmorphone 1 MG/ML CARPUJECT IVP STA (14:47)
[2023-08-29 14:58] VITALS: BP 144/66; O2SAT 100
[2023-08-29] MEDS: iohexoL-300 100 ML VIAL IVP ONE (15:31)
== END 2023-08-29 15:10 | disposition home or self-care (01) ==
LOC: ED 11:33
DX: N39.0 Urinary tract infection, site not specified (principal); K52.9 Noninfective gastroenteritis and colitis, unspecified
CPT/HCPCS: 36415; 74177; 80053; 83690; 85025; 96374; 96375; 99284; 99285; J1170; Q9967